=== PATIENT | female | born 2000 | race Asian ===

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

== ENCOUNTER 2018-03-05 05:25 | Emergency (ER) | payer OTHER ==
[~2018-03-05] VITALS: Ht 160 cm; Wt 67.6 kg
[2018-03-05 05:33] VITALS: BP 129/79
--- NOTE | 2018-03-05 05:40 | NUR ---
PT AMBULATED TO BED 1
--- NOTE | 2018-03-05 05:40 | NUR ---
PATIENT PRESENTS TO ED WITH C/O COUGH/FEVER AND HEADACHE PT DENIES N/V/D; SKIN IS PINK/WARM/DRY; AAOX4 WITH EVEN AND STEADY GAIT; LUNGS CLEAR BL; HR EVEN AND REGULAR; PATIENT STATES PAIN OF 8/10 AT THIS TIME; PATIENT POSITIONED FOR COMFORT; HOB ELEVATED; BEDRAILS UP X2; BED DOWN. ER MD MADE AWARE OF PT STATUS.
[2018-03-05] MEDS ORDERED: KETOROLAC 30 MG/ML VIAL IVP ONE (05:55)
[2018-03-05] MEDS ORDERED: NACL 0.9% 1,000 ML IV ONE (05:55)
--- NOTE | 2018-03-05 06:12 | NUR ---
IV 20GA RT A/C DONE, IVP MEDS GIVEN-NADR AT THIS TIME
[2018-03-05 06:44] VITALS: BP 122/72
--- NOTE | 2018-03-05 06:45 | NUR ---
Patient discharged with v/s stable. Written and verbal after care instructions given and explained. Patient alert, oriented and verbalized understanding of instructions. Ambulatory with steady gait. All questions addressed prior to discharge. ID band removed. Patient advised to follow up with PMD. Rx of ibu, given. Patient educated on indication of medication including possible reaction and side effects. Opportunity to ask questions provided and answered. Addendum: 03/05/18 at 0647 by BISHOP tamiflu, prednisone
== END 2018-03-05 06:45 | disposition home or self-care (01) ==
LOC: MED 05:25
DX: J11.1 Influenza due to unidentified influenza virus with other respiratory manifestations (principal)
CPT/HCPCS: 81002; 81025; 96361; 96374; 99283; J1885; J7030

== ENCOUNTER 2023-08-06 13:31 | Inpatient (IN) | payer OTHER ==
[~2023-08-06] VITALS: Ht 160 cm; Wt 58.1 kg
[2023-08-06 14:02] VITALS: BP 113/69; PULSE 85; RESP 18; TEMP 97.1; O2SAT 99
[2023-08-06 15:42] LABS: BASOPHILS # (AUTO) 0.1 K/uL (0.00-0.22); BASOPHILS % (AUTO) 1.3 % (0.0-2.0); EOSINOPHILS # (AUTO) 0.4 K/uL (0-0.4); HEMATOCRIT 34.1 % (36-48); HEMOGLOBIN 11.1 g/dL (12.0-16.0); LYMPHOCYTES # (AUTO) 1.3 K/uL (2.5-16.5); LYMPHOCYTES % (AUTO) 21.9 % (20.5-51.1); MEAN CORPUSCULAR HEMOGLOBIN 25 pg (27-31); MEAN CORPUSCULAR HGB CONC 33 g/dL (33-37); MEAN CORPUSCULAR VOLUME 76.7 fL (80-94); MONOCYTES # (AUTO) 0.3 K/uL (0.8-1.0); MONOCYTES % (AUTO) 5.9 % (1.7-9.3); NEUTROPHILS # (AUTO) 3.6 K/uL (1.8-7.7); NEUTROPHILS % (AUTO) 63.9 % (42.2-75.2); PLATELET COUNT (AUTO) 247 K/uL (140-450); RED BLOOD CELL COUNT(AUTO) 4.44 MIL/uL (4.20-5.40); RED CELL DISTRIBUTION WIDTH 14.6 % (11.6-13.7); WHITE BLOOD COUNT (AUTO) 5.7 K/uL (4.8-10.8)
[2023-08-06 16:00] LABS: ANION GAP 10.4 (8-16); CALCIUM 9.1 mg/dL (8.5-10.1); CARBON DIOXIDE 28.7 mmol/L (21-32); CREATININE 0.6 mg/dL (0.6-1.3); POTASSIUM 4.1 mmol/L (3.5-5.1)
[2023-08-06 16:05] LABS: BILIRUBIN,DIRECT 0.1 mg/dL (0.0-0.3); TOTAL BILIRUBIN 0.4 mg/dL (0.0-1.0); TOTAL PROTEIN, SERUM 7.8 g/dL (6.4-8.2)
[2023-08-06 16:25] LABS: APPEARANCE,URINE CLEAR (CLEAR); BILIRUBIN,URINE NEGATIVE (NEGATIVE); BLOOD, URINE NEGATIVE (NEGATIVE); COLOR,URINE YELLOW (YELLOW); LEUKOCYTE ESTERASE ,URINE NEGATIVE (NEGATIVE); NITRITE, URINE NEGATIVE (NEGATIVE); PROTEIN,URINE NEGATIVE (NEGATIVE); UGLUCOSE NEGATIVE (NEGATIVE); UROBILINOGEN,URINE 0.2 EU/dL (0.2 - 1)
[2023-08-06] MEDS: ONDANSETRON 4 MG ODT PO ONE (17:29)
[2023-08-06] MEDS: NACL 0.9% 1,000 ML IV ONE (18:53)
[2023-08-06] MEDS ORDERED: MORPHINE SULFATE 4 MG/ML SYR IVP PRN (19:20)
[2023-08-06] MEDS: DEXT 5% /NACL 0.9% 1,000 ML IV SCH (19:20)
[2023-08-06] MEDS ORDERED: MAGNESIUM OXIDE 400 MG TAB PO PRN (19:20)
[2023-08-06] MEDS ORDERED: POTASSIUM CHLORIDE 10 MEQ TABER PO PRN (19:20)
[2023-08-06] MEDS ORDERED: HYDROmorphone 1 MG/ML AMP IVP PRN (19:20)
[2023-08-06] MEDS ORDERED: LORazepam 1 MG TAB PO PRN (19:20)
[2023-08-06] MEDS ORDERED: ONDANSETRON 4 MG/2 ML VIAL IVP PRN (19:20)
[2023-08-06] MEDS ORDERED: MAG SULF 2000 MG/WATER PREMIX 50 ML IV PRN (19:20)
[2023-08-06] MEDS ORDERED: KCL 20 MEQ IN 100 mL PREMIX 200 ML IV PRN (19:20)
[2023-08-06] MEDS ORDERED: ZOLPIDEM 5 MG TAB PO PRN (19:20)
[2023-08-06] MEDS: KETOROLAC 30 MG/ML VIAL IVP ONE (19:28)
[2023-08-06] MEDS ORDERED: PIPERACILLIN/TAZOBACTAM 3.375 GM in DEXTROSE 5% 50 ML IV SCH (19:30)
[2023-08-06] MEDS ORDERED: MORPHINE SULFATE 2 MG/ML SYR IVP PRN (19:30)
[2023-08-06] MEDS ORDERED: ACETAMINOPHEN/CODEINE 300/30MG 1 TAB PO PRN (19:30)
[2023-08-06] MEDS: NACL 0.9% 1,000 ML IV SCH (19:57)
[2023-08-06 19:58] VITALS: O2SAT 98
[2023-08-06 21:10] VITALS: BP 109/68; PULSE 77; RESP 18; TEMP 97.8; O2SAT 96
[2023-08-06] MEDS: PIPERACILLIN/TAZOBACTAM 3.375 GM in DEXTROSE 5% 50 ML IV ONE (22:00)
[2023-08-06] MEDS: HYDROcodone/APAP 5/325 MG 1 TAB TAB PO PRN (22:35)
[2023-08-07] VITALS: BP 101/62; PULSE 78; RESP 18; TEMP 97.9; O2SAT 99
[2023-08-07] MEDS: PIPERACILLIN/TAZOBACTAM 3.375 GM in DEXTROSE 5% 50 ML IV SCH (00:15)
[2023-08-07] MEDS: PIPERACILLIN/TAZOBACTAM 3.375 GM VIAL IV ONE ×2 (00:16→06:02)
[2023-08-07 04:00] VITALS: BP 105/77; PULSE 67; RESP 18; TEMP 97.6; O2SAT 100
[2023-08-07 07:35] LABS: ALBUMIN 3.4 g/dL (3.4-5.0); ANION GAP 10.5 (8-16); CALCIUM 8.6 mg/dL (8.5-10.1); CARBON DIOXIDE 28.3 mmol/L (21-32); CREATININE 0.7 mg/dL (0.6-1.3); MAGNESIUM 2.1 mg/dL (1.8-2.4); POTASSIUM 3.8 mmol/L (3.5-5.1); TOTAL BILIRUBIN 0.3 mg/dL (0.0-1.0); TOTAL PROTEIN, SERUM 6.6 g/dL (6.4-8.2)
[2023-08-07 07:40] LABS: BASOPHILS # (AUTO) 0.1 K/uL (0.00-0.22); BASOPHILS % (AUTO) 0.8 % (0.0-2.0); EOSINOPHILS # (AUTO) 0.4 K/uL (0-0.4); HEMATOCRIT 33.1 % (36-48); HEMOGLOBIN 10.7 g/dL (12.0-16.0); LYMPHOCYTES # (AUTO) 2.1 K/uL (2.5-16.5); LYMPHOCYTES % (AUTO) 34.3 % (20.5-51.1); MEAN CORPUSCULAR HEMOGLOBIN 25 pg (27-31); MEAN CORPUSCULAR HGB CONC 32 g/dL (33-37); MONOCYTES # (AUTO) 0.4 K/uL (0.8-1.0); MONOCYTES % (AUTO) 5.9 % (1.7-9.3); NEUTROPHILS # (AUTO) 3.2 K/uL (1.8-7.7); PLATELET COUNT (AUTO) 227 K/uL (140-450); RED CELL DISTRIBUTION WIDTH 14.4 % (11.6-13.7); WHITE BLOOD COUNT (AUTO) 6.2 K/uL (4.8-10.8)
[2023-08-07 08:00] VITALS: BP 111/72; PULSE 80; RESP 18; TEMP 97.6; O2SAT 100
[2023-08-07] MEDS: DOCUSATE SODIUM 100 MG GELCAP PO SCH (08:54)
[2023-08-07 16:00] VITALS: BP 119/72; PULSE 64; RESP 18; TEMP 98.3; O2SAT 99
[2023-08-07] MEDS: ACETAMINOPHEN 325 MG TAB PO PRN (17:35)
[2023-08-07 20:00] VITALS: BP 105/63; PULSE 77; RESP 19; TEMP 98.5; O2SAT 100
[2023-08-07] MEDS: MEDS-TO-BEDS MC SCH (21:00)
[2023-08-08 07:11] LABS: EOSINOPHILS # (AUTO) 0.4 K/uL (0-0.4); EOSINOPHILS % (AUTO) 8.9 % (0.0-4.0); HEMATOCRIT 30.7 % (36-48); LYMPHOCYTES # (AUTO) 1.5 K/uL (2.5-16.5); MEAN CORPUSCULAR HEMOGLOBIN 25 pg (27-31); MEAN CORPUSCULAR HGB CONC 33 g/dL (33-37); MEAN CORPUSCULAR VOLUME 76.8 fL (80-94); MONOCYTES # (AUTO) 0.4 K/uL (0.8-1.0); MONOCYTES % (AUTO) 8.3 % (1.7-9.3); NEUTROPHILS # (AUTO) 2.3 K/uL (1.8-7.7); NEUTROPHILS % (AUTO) 49.8 % (42.2-75.2); PLATELET COUNT (AUTO) 238 K/uL (140-450); RED BLOOD CELL COUNT(AUTO) 3.99 MIL/uL (4.20-5.40); RED CELL DISTRIBUTION WIDTH 14.4 % (11.6-13.7); WHITE BLOOD COUNT (AUTO) 4.7 K/uL (4.8-10.8)
[2023-08-08 07:28] LABS: INR 1.12 (0.8-1.2); PARTIAL THROMBOPLASTIN TIME 26.5 secs (22-35.6); PROTHROMBIN TIME 11.7 secs (10.8-13.4)
[2023-08-08 07:37] LABS: ALBUMIN 3.3 g/dL (3.4-5.0); ANION GAP 9.7 (8-16); CALCIUM 8.5 mg/dL (8.5-10.1); CARBON DIOXIDE 29.6 mmol/L (21-32); CREATININE 0.7 mg/dL (0.6-1.3); POTASSIUM 4.3 mmol/L (3.5-5.1); TOTAL BILIRUBIN 0.6 mg/dL (0.0-1.0); TOTAL PROTEIN, SERUM 6.4 g/dL (6.4-8.2)
[2023-08-08 08:00] VITALS: BP 107/63; PULSE 66; PULSE 84; RESP 18; RESP 19; TEMP 98.5; O2SAT 100
[2023-08-08] MEDS ORDERED: SEVOFLURANE 250 ML BTL INH ONE ×2 (08:40)
[2023-08-08] MEDS: PROPOFOL 200 MG/20 ML VIAL IV ONE (09:51)
[2023-08-08] MEDS: HYDROmorphone PFS 2 MG/ML SYR ONE (09:51)
[2023-08-08] MEDS: LIDOCAINE 2% 100 MG/5 ML SYR IVP ONE (09:56)
[2023-08-08] MEDS: LIDOCAINE/EPI 1% 1:100000 20 ML VIAL INJ ONE (10:23)
[2023-08-08] MEDS: BUPIVACAINE-MPF 0.25% 30 ML VIAL INJ ONE (10:23)
[2023-08-08] MEDS: ONDANSETRON 4 MG/2 ML VIAL ONE (10:33)
[2023-08-08] MEDS: GLYCOPYRROLATE 0.2 MG/ML VIAL ONE (10:33)
[2023-08-08] MEDS: ePHEDrine 50 MG/ML VIAL ONE (10:33)
[2023-08-08] MEDS: DEXAMETHASONE 4 MG/ML VIAL ONE (10:33)
[2023-08-08] MEDS: ROCURONIUM 50 MG/5 ML VIAL IV ONE (10:33)
[2023-08-08] MEDS: SUCCINYLCHOLINE CHLORIDE 200 MG/10 ML VIAL IVP ONE (10:34)
[2023-08-08] MEDS: NEOSTIGMINE 1:1000 10 MG/10 ML VIAL ONE (10:34)
[2023-08-08] MEDS: KETOROLAC 30 MG/ML VIAL ONE (10:41)
[2023-08-08 16:00] VITALS: BP 101/64; PULSE 68; RESP 19; TEMP 97.6; O2SAT 100
[2023-08-08 20:00] VITALS: PULSE 77; RESP 16; O2SAT 99
[2023-08-09 07:49] LABS: BASOPHILS % (AUTO) 0.3 % (0.0-2.0); EOSINOPHILS # (AUTO) 0.1 K/uL (0-0.4); EOSINOPHILS % (AUTO) 1.1 % (0.0-4.0); HEMATOCRIT 31.5 % (36-48); HEMOGLOBIN 10.2 g/dL (12.0-16.0); LYMPHOCYTES # (AUTO) 1.4 K/uL (2.5-16.5); MEAN CORPUSCULAR HEMOGLOBIN 25 pg (27-31); MEAN CORPUSCULAR HGB CONC 33 g/dL (33-37); MEAN CORPUSCULAR VOLUME 77.2 fL (80-94); MONOCYTES # (AUTO) 0.5 K/uL (0.8-1.0); NEUTROPHILS # (AUTO) 6.1 K/uL (1.8-7.7); NEUTROPHILS % (AUTO) 75.6 % (42.2-75.2); PLATELET COUNT (AUTO) 253 K/uL (140-450); RED BLOOD CELL COUNT(AUTO) 4.08 MIL/uL (4.20-5.40); RED CELL DISTRIBUTION WIDTH 14.4 % (11.6-13.7)
[2023-08-09 07:55] LABS: ALBUMIN 3.5 g/dL (3.4-5.0); ANION GAP 14.1 (8-16); CALCIUM 9.1 mg/dL (8.5-10.1); CARBON DIOXIDE 25.5 mmol/L (21-32); CREATININE 0.7 mg/dL (0.6-1.3); POTASSIUM 3.6 mmol/L (3.5-5.1); TOTAL BILIRUBIN 0.6 mg/dL (0.0-1.0); TOTAL PROTEIN, SERUM 6.8 g/dL (6.4-8.2)
[2023-08-09] MEDS ORDERED: [UNRECOGNIZED DRUG - CODE] PO (08:58)
[2023-08-09] MEDS ORDERED: IBUP-2213 PO (08:58)
[2023-08-09 10:35] VITALS: BP 113/73; PULSE 66; RESP 18; TEMP 97.6
== END 2023-08-09 11:15 | disposition home or self-care (01) | DRG 234 ==
LOC: MED 13:31 → MTU 19:27
PROVIDERS: ADMIT Internal Medicine; ATTEND Internal Medicine
PROC: 0DTJ4ZZ Resection of Appendix, Percutaneous Endoscopic Approach (ICD-10-PCS; principal; 2023-08-08 10:00)
DX: K35.80 Unspecified acute appendicitis (principal); D50.9 Iron deficiency anemia, unspecified; Z88.8 Allergy status to other drugs, medicaments and biological substances; Z79.4 Long term (current) use of insulin; Z82.5 Family history of asthma and other chronic lower respiratory diseases; Z82.49 Family history of ischemic heart disease and other diseases of the circulatory system
CPT/HCPCS: 36415; 76705; 80048; 80053; 80076; 81003; 83690; 83735; 85025; 85610; 85730; 87040; 87081; 88304; 96361; 96374; 99285; J0330; J1100; J1170; J1885; J2001; J2270; J2405; J2543; J2704; J2710; J3490; J7030; J7060; Q0092; Q0162